=== PATIENT | female | born 2000 | race Caucasian/White ===

== ENCOUNTER → 2021-02-17 15:39 | Outpatient (CLI) | payer OTHER, SELFPAY ==
[2021-02-17 17:32] LABS: Absolute Lymphocyte Count 1.39 X10^3/uL (0.83-4.51); Absolute Neutrophil Count 8.7 X10^3/uL (2.0-7.7); Basophil# 0.05 X10^3/uL; Basophil% 0.5 % (0-1); Eosinophil# 0.04 X10^3/uL; Eosinophils% 0.4 % (0-5); Hematocrit 32.1 % (37-47); Hemoglobin 11.3 g/dL (12.0-15.0); Lymphocyte # 1.39 X10^3/ul (0.83-4.51); Mean Corp Hgb Conc 35.2 g/dL (32-36); Mean Corpuscular Hgb 31.6 pg (27.0-32.0); Mean Corpuscular Volume 89.7 fL (81-99); Mean Platelet Vol. 8.4 fl (6.2-12.0); Monocyte# 0.47 X10^3/uL; Monocyte% 4.4 % (0-10); NRBC Flagged by Analyzer 0 % (0-5); Neutrophil # 8.68 X10^3/uL (2.7-7.7); Neutrophil % 81.1 % (47-70); Platelet Count 352 K/mm3 (150-450); RBC Distribution Width CV 11.9 % (11.6-14.6); RBC Distribution Width SD 38.5 fl (35.1-43.9); Red Blood Count 3.58 M/mm3 (4.2-5.4); White Blood Count 10.7 K/mm3 (4.4-11.0)
[2021-02-18 10:02] LABS: HIV - WCH Non-Reactive (Nonreactive); Hepatitis B Surface Antigen Non-Reactive (Nonreactive); Hepatitis C Antibody Non-Reactive (Nonreactive); Rubella IgG Reactive (Nonreactive); Syphilis Antibodies Non-reactive
[2021-02-20 03:07] LABS: Chlamydia By Nucleic Acid AMP Negative (Negative)
[2021-02-20 12:41] LABS: Gonococcus By Nucleic Acid AMP Negative (Negative)
== END ==
PROVIDERS: Visit Provider Student in an Organized Health Care Education/Training Program
DX: Z34.81 Encounter for supervision of other normal pregnancy, first trimester (principal); Z11.3 Encounter for screening for infections with a predominantly sexual mode of transmission
CPT/HCPCS: 36415; 85025; 86703; 86762; 86780; 86803; 87086; 87088; 87186; 87340; 87491; 87591

== ENCOUNTER → 2021-03-24 | Outpatient (CLI) | payer OTHER, SELFPAY | END | disposition home or self-care (01) | LOC: LABSPEC 11:02 | PROVIDERS: Visit Provider Obstetrics & Gynecology | DX: O26.892 Other specified pregnancy related conditions, second trimester (principal); M54.9 Dorsalgia, unspecified; Z3A.00 Weeks of gestation of pregnancy not specified | CPT/HCPCS: 87077; 87086; 87088 ==

== ENCOUNTER 2021-09-21 17:20 | Inpatient (IN) | payer OTHER, SELFPAY ==
[2021-09-21] VITALS (16 sets, daily range): BP systolic 112–145; BP diastolic 56–70; PULSE 72–103; TEMP 36.4–37.3; O2SAT 97–100; BMI 22.6
--- NOTE | 2021-09-21 | PLAC_PTH ---
PATIENT: BISI SILVER LOC: WP U#:[id number] AGE/SX: 20/F ROOM: [facility] RE09/21/[address]: Dayanara Wolf CNM : 2000 BED: 1 DIS: 09/23/2021 SPEC #: [id number] RECD: 09/21/21 21:28 STATUS: SHOSHANA RUPERT #: [id number] PAPITO: 09/21/21 00:[address]: Dayanara Wolf DEPT: SURGICAL PATHOLOGY RECD BY: Yuriy Dent Tissues: Placenta, NOS Procedures: Surgery Specimen Level V HEADER OPERATION: Vaginal delivery PRE-OP DIAGNOSIS: Abnormal placenta TISSUE SUBMITTED: Placenta MICROSCOPIC DIAGNOSIS Chapin placenta (355 gm): Umbilical cord ? trivascular with no evidence of inflammation. Placental membranes ? mild acute chorioamnionitis and acute deciduitis. Placental disc ? Lisette-Keith change and mild intervillous congestion. AM:santo 09/24/2021 MICROSCOPIC DESCRIPTION Slides are reviewed. GROSS DESCRIPTION SPECIMEN: PLACENTA / CLINICAL INFORMATION: A. Weight: 2.81 kg B. Gestational Age: 39 weeks C. Sex: Male PLACENTAL WEIGHT (POST FIXATION): 355 gm PLACENTAL DIMENSIONS: 15 x 15 x 3 cm PLACENTAL SHAPE: Usual ovoid PLACENTAL WEIGHT FOR GESTATIONAL AGE: Within 10-99th percentile MEMBRANES - Present A. Insertion: Marginal B. Site of rupture from edge: 6 cm from edge of placental disc C. Color of membrane: Mauro-diehl D. Abnormalities: None UMBILICAL CORD - Present A. Color: Mauro-diehl B. Insertion: Eccentric C. Length: 23 cm D. Diameter: 1 cm E. Number of vessels: Three F. Abnormalities: None PLACENTAL DISC - Present A. Color of surface: Mauro-diehl B. surface abnormalities: None C. Maternal cotyledons: Intact with minimal tears D. Attached retro placental clot: No clot E. Cut surface: Dark red and spongy F. Lesions: None G. Separate clot: Absent SECTIONS SUBMITTED: 1. Umbilical cord ( end notched) 2. Umbilical cord, placental end 3. Membrane roll 4. Placental disc, and maternal surfaces 5. Placental disc, and maternal surfaces 6. Placental disc, and maternal surfaces AM:rg 09/23/21 TC:2 CPT: 35119
--- NOTE | 2021-09-21 17:24 | PCM.HP.OB ---
HPI - General HPI Narrative BISI SILVER, is a 20 F who presents at 39 weeks in active labor PFSH PFSH Home Medications aspirin [Aspir-81] 81 mg PO DAILY 09/21/21 [History Last Taken Unknown] [id number] [] 1 tab PO DAILY 09/21/21 [History Last Taken 09/19/21] Allergy/AdvReac Type Severity Reaction Status Date / Time No Known Allergies Allergy Verified 09/21/21 16:56 Social History Smoking Status: Never smoker History Elective abortions Hx Para 0 Spontaneous abortions Hx # Term Pregnancies Ectopic pregnancies Hx # Pregnancies Multiple births # of living children NST FHR Rate Baby A Baseline: 145 Variability:: Moderate Accelerations:: 15 x 15 Decelerations:: None FHR Category:: Category I Uterine Activity:: every 3 minutes, strong ROS Constitutional Constitutional: Reports systems reviewed and no addt'l complaints, except as documented; Denies headache(s) Eyes Eyes: Denies acute decrease in peripheral vision, blurry vision or change in vision ENT HEENT: Reports systems reviewed and no addt'l complaints, except as documented Cardiovascular Cardiovascular: Denies chest pain or dizziness Respiratory/Chest Respiratory/Chest: Denies cough, dyspnea, dyspnea on exertion, shortness of breath at rest or shortness of breath with exertion Gastrointestinal Gastrointestinal: Denies abdominal pain, diarrhea, nausea or vomiting Genitourinary Genitourinary: Denies abdominal discomfort or movement Musculoskeletal Musculoskeletal: Denies limited range of motion Integumentary Integumentary: Reports systems reviewed and no addt'l complaints, except as documented Neurologic Neurologic: Reports systems reviewed and no addt'l complaints, except as documented Psychiatric Psychiatric: Reports systems reviewed and no addt'l complaints, except as documented Endocrine Endocrinology: Reports systems reviewed and no addt'l complaints, except as documented Hematologic/Lymphatic Hematologic/Lymphatic: Reports systems reviewed and no addt'l complaints, except as documented Allergic/Immunologic Allergic/Immunologic: Reports systems reviewed and no addt'l complaints, except as documented Vital Signs Vital Signs Vital Signs: 09/21/21 16:30 Pulse Rate 75 Blood Pressure 131/70 H BP Systolic 131 BP Diastolic 70 Weight Weight: 131 lb 9.855 oz Body Mass Index (BMI) 22.6 Physical Exam Const alert and oriented x3 General Appearance: cooperative Orientation / Consciousness: awake, oriented to person, oriented to place and oriented to time Exam Limitations: no limitations HEENT normocephalic Head and Scalp: normal to inspection, normocephalic and atraumatic Face and Sinus: normal facial exam Eyes General Eye: normal appearance of both eyes Neck full ROM Chest Chest: symmetrical chest wall rise Resp normal respiratory effort and normal air movement Auscultation: clear to auscultation bilaterally Cardio regular rate, regular rhythm, S1 normal heart sound, S2 normal heart sound, no murmurs, no rub, no gallops and no clicks GI normal to inspection, nondistended, normoactive bowel sounds and non-tender appearance of the vagina normal Bladder / Kidney Exam: no CVA tenderness Manual OB Exam: presentation cephalic, dilated 6cm, effaced 90, station 0 and other bulging bag of water Back/Spine normal ROM Extremity normal to inspection and full ROM Skin no rashes or lesions noted Neuro oriented x3, CN's II-XII intact bilaterally and moves all extremities Sensorium / Orientation: awake, alert and oriented to person Motor Exam: clonus absent Deep Tendon Reflexes: Rt Patellar (L4): 2+ and Lt Patellar (L4): 2+ Labs Labs Labs: Blood Type B NEGATIVE Hct 32.1 % (37-47) L Hgb 11.3 g/dL (12.0-15.0) L Syphilis Total Ab Non-reactive Rubella IgG Antibody Reactive (Nonreactive) Hep Bs Antigen Non-Reactive (Nonreactive) Neisseria gonorrhoeae DNA (ROSSY) Negative (Negative) HIV 1&2 Antibody Non-Reactive (Nonreactive) GBS positive Assessment & Plan (1) 39 weeks gestation of : (2) Active labor: (3) Positive GBS test: (4) Rh negative state in antepartum period: (5) History of seizure: (6) Anemia affecting : PLAN: 1. Admit to labor and delivery 2. IV and routine labs 3. Epidural for pain management 4. GBS positive, routine prophylaxis with penicillin 5. Continuous EFM 6. Dr. Costello notified of patient status and admission
[2021-09-21] MEDS: Lactated Ringers 1,000 ML 200 ML IV (17:30)
[2021-09-21] MEDS: Lactated Ringers 500 ML 999 ML IV (17:40)
[2021-09-21 17:51] LABS: Absolute Lymphocyte Count 1.63 X10^3/uL (0.83-4.51); Absolute Neutrophil Count 15.4 X10^3/uL (2.0-7.7); Basophil# 0.05 X10^3/uL; Basophil% 0.3 % (0-1); Eosinophil# 0.01 X10^3/uL; Eosinophils% 0.1 % (0-5); Hematocrit 35.2 % (37-47); Hemoglobin 12.2 g/dL (12.0-15.0); Lymphocyte # 1.63 X10^3/ul (0.83-4.51); Lymphocyte % 9.1 % (19-41); Mean Corp Hgb Conc 34.7 g/dL (32-36); Mean Corpuscular Hgb 32.5 pg (27.0-32.0); Mean Corpuscular Volume 93.9 fL (81-99); Mean Platelet Vol. 8.5 fl (6.2-12.0); Monocyte# 0.68 X10^3/uL; Monocyte% 3.8 % (0-10); NRBC Flagged by Analyzer 0 % (0-5); Platelet Count 310 K/mm3 (150-450); RBC Distribution Width CV 12.6 % (11.6-14.6); Red Blood Count 3.75 M/mm3 (4.2-5.4); White Blood Count 17.9 K/mm3 (4.4-11.0)
[2021-09-21] MEDS: Oxytocin 30 units/NS 500 ml 30 UNITS/500 ML IV.SOLN 334 UNITS IV (18:54)
--- NOTE | 2021-09-21 19:05 | EX.PCM.OBRPT ---
Vaginal Delivery Maternal Presentation Maternal Presentation: Active Labor Operative Information Date of Procedure: 09/21/21 Pre-Operative Diagnosis: Active Labor Post-Operative Diagnosis: Surgery / Procedure Performed: Spontaneous Vaginal Delivery Type of Anesthesia: None Estimated Blood Loss: 150 ml Time of Delivery: 18:52 Findings Description of Procedure: Admitted in labor and progressed rapidly to complete dilation with strong urge to push. Precipitous of viable male infant over 1st degree perineal laceration. APGARS 9,9. Infant head delivered in PEGGY with body immediately forthcoming. Mouth and nares suctioned for secretions, spontaneous cry. Pitocin started for active 3rd stage management. Delayed cord clamping. Cord doubly clamped and cut by FOB. Placenta delivered intact via carlee, 3 vessel cord. Perineum inspected and revealed small first degree laceration repaired with 3.0 vicyl rapide figure 8 stitch with approximation. Vaginal sweep completed by me, sponge and instrument count correct. Fundus firm, EBL 150ml. Mom and baby stable, planning to breastfeed, family bonding well. notified of delivery. Presentation: PEGGY Amniotic Membrane Rupture Type: Artificial Amniotic Fluid Description: Clear Placental Delivery Description: Spontaneous Placenta Disposition: Sent to Pathology Cord Vessel Description: 3 Vessels Cord Entanglement: None A Gender: Male (1 minute): 9 (5 minute): 9 Delayed Cord Clamping: Yes Post Vaginal Delivery Medications Given After Delivery: IV Pitocin Episiotomy Description: None Laceration: 1st degree Complication Complications: None
[2021-09-21 21:36] LABS: Probe Check PASS; Specimen Processing Control PASS
[2021-09-21] MEDS: 0.9% Saline Lock 10 ML Syringe IV (21:40)
[2021-09-21 21:41] LABS: Pathology Specimen OB SEE PATHOLOGY REPORT
[2021-09-22 00:47] VITALS: BP 126/54; PULSE 74; RESP 16; TEMP 37.1; O2SAT 98
[2021-09-22 04:25] VITALS: BP 127/68; PULSE 81; RESP 18; TEMP 36.2; O2SAT 97
[2021-09-22 07:47] VITALS: BP 128/75; PULSE 68; RESP 16; TEMP 36.8; O2SAT 98
--- NOTE | 2021-09-22 09:32 | NURSING ---
Report given to Reno Zayas RN, who will assume care of this patient at this time.
[2021-09-22 12:40] VITALS: BP 124/60; PULSE 78; RESP 16; TEMP 36.7; O2SAT 97
--- NOTE | 2021-09-22 15:40 | PCM.PN.OB ---
Subjective Subjective Denies complaints Objective Data Objective Data Vital Signs: Vital Signs Temp Pulse Resp BP Pulse Ox 98.0 F 78 16 124/60 H 97 09/22/21 12:40 09/22/21 12:40 09/22/21 12:40 09/22/21 12:40 09/22/21 12:40 Oxygen Delivery Method Room Air Weight: 131 lb 9.855 oz Body Mass Index (BMI) 22.6 Intake & Output: Intake and Output for Last 24 Hours 09/20/21 09/21/21 09/22/21 23:59 23:59 23:59 Intake Total 904.73 / 904.73 Output Total 200 / 200 700 / 700 Balance 704.73 / 704.73 -700 / -700 Lab / Micro Data Result Diagrams: 09/21/21 17:30 Labs: Laboratory Results - last 24 hr 09/21/21 17:30: WBC 17.9 H, RBC 3.75 L, Hgb 12.2, Hct 35.2 L, MCV 93.9, MCH 32.5 H, MCHC 34.7, RDW Std Deviation 43.0, RDW Coeff of Zheng 12.6, Plt Count 310, MPV 8.5, Immature Gran % (Auto) 0.700, Neut % (Auto) 86.0 H, Lymph % (Auto) 9.1 L, [place] % (Auto) 3.8, Eos % (Auto) 0.1, Baso % (Auto) 0.3, Absolute Neuts (auto) 15.4 H, Absolute Lymphs (auto) 1.63, Nucleated RBC % 0 09/21/21 17:30: Blood Type B NEGATIVE, Antibody Screen TNP 09/21/21 17:30: COVID-19 (ROSSY) Negative 09/21/21 17:30: Antibody Screen NEGATIVE 09/21/21 20:35: Screen NEGATIVE, Baby's Blood Type O POSITIVE, Baby's JUDY NEGATIVE Physical Exam Const alert, oriented x3 and no apparent distress HEENT normocephalic GI soft to palpation, non-tender and non-distended GI Narrative: fundus firm, mid & below umbilicus Extremity normal to inspection and no calf tenderness Assessment & Plan (1) 39 weeks gestation of : COMMENT: PPD#1 PLAN: Routine care
[2021-09-22 16:53] VITALS: BP 125/71; PULSE 80; RESP 16; TEMP 36.5; O2SAT 98
[2021-09-22 20:30] VITALS: BP 115/68; PULSE 82; RESP 16; TEMP 36.9; O2SAT 95
[2021-09-23 02:35] VITALS: BP 112/67; PULSE 78; RESP 16; TEMP 36.6; O2SAT 97
[2021-09-23 07:40] VITALS: BP 121/54; PULSE 68; RESP 16; TEMP 36.4; O2SAT 99
--- NOTE | 2021-09-23 08:01 | PCM.PN.OB ---
Subjective Subjective Patient seen at bedside, doing well. Patient reports good pain control. Mild lochia. Voiding without difficulty. Breast-feeding. Patient ready for DC home today. Objective Data Objective Data Vital Signs: Vital Signs Temp Pulse Resp BP Pulse Ox 97.6 F L 68 16 121/54 H 99 09/23/21 07:40 09/23/21 07:40 09/23/21 07:40 09/23/21 07:40 09/23/21 07:40 Oxygen Delivery Method Room Air Weight: 59.7 kg Body Mass Index (BMI) 22.6 Intake & Output: Intake and Output for Last 24 Hours 09/21/21 09/22/21 09/23/21 23:59 23:59 23:59 Intake Total 904.73 / 904.73 Output Total 200 / 200 700 / 700 Balance 704.73 / 704.73 -700 / -700 Lab / Micro Data Result Diagrams: 09/21/21 17:30 Physical Exam Const alert and oriented x3 General Appearance: cooperative HEENT normocephalic Neck General: normal visual inspection GI soft to palpation and non-distended GI Narrative: Fundus firm Extremity normal to inspection and no calf tenderness Skin no rashes or lesions noted Neuro oriented x3 and CN's II-XII intact bilaterally Psych mental status grossly normal Assessment & Plan (1) Vaginal delivery: PLAN: PPD#2 , Doing well Routine care pain mgmt ambulation dc home
--- NOTE | 2021-09-23 08:02 | PCM.DC ---
Discharge Instructions Diet Discharge Diet: No restrictions Activity May resume sexual activity in: 6-8 weeks Dressing / Incision Call your doctor if you observe: Fever of 101 or Higher, Inability to urinate, Using more than 1 pad per hour and Uncontrolled pain Follow Up Care Please Follow Up With: Eri Barth MD When: 1-2 weeks post and again at 6 weeks post . [phone] Test Results: Test results from this visit will be discussed in further detail at your follow-up appointment, if applicable. Discharge Plan Admission Admit Date/Time: 09/21/21 17:20 Attending Provider: Dayanara Wolf Discharge Orders/Prescriptions Prescriptions: New acetaminophen 500 mg Tablet 500 - 1,000 mg PO Q6H PRN PRN (Reason: Pain Score 1-3) Qty: 0 RF: 0 ibuprofen 600 mg Tablet 600 mg PO Q6H PRN PRN (Reason: Pain Score 1-3) Qty: 0 RF: 0 Continued [id number] 1 mg Tablet 1 tab PO DAILY RF: 0 Discontinued aspirin [Aspir-81] 81 mg Tablet,Delayed Release (Dr/Ec) 81 mg PO DAILY RF: 0 Disposition Disposition (needs filled in before D/C Order can be placed): Home, Self Care
== END 2021-09-23 10:05 | disposition home or self-care (01) | DRG 807 ==
LOC: WPOUT 17:25 → WP 17:25
PROVIDERS: Admitting Provider Advanced Practice Midwife; Visit Provider Advanced Practice Midwife
DX: O99.824 Streptococcus B carrier state complicating childbirth (principal); Z37.0 Single live birth; O62.3 Precipitate labor; O70.0 First degree perineal laceration during delivery; O99.02 Anemia complicating childbirth; D64.9 Anemia, unspecified; Z3A.39 39 weeks gestation of pregnancy
CPT/HCPCS: 59025; 59050; 85025; 85461; 86850; 86900; 86901; 87635; 88307; 90384; 99218; J7120; U0005; A4216; G0378; J2790; U0003

== ENCOUNTER → 2023-02-07 | Outpatient (CLI) | payer OTHER, MEDICAID, SELFPAY ==
--- NOTE | 2023-02-07 12:22 | US_ITS ---
STUDY: RENAL ULTRASOUND - COMPLETE REASON FOR EXAM: Female, 22 years old. UTI -- HX KIDNEY INFECTIONS TECHNIQUE: Ultrasound evaluation of the kidneys was performed with real-time and static patel-scale imaging. COMPARISON: None. FINDINGS: RIGHT KIDNEY: Normal location of the right kidney, which is normal in size. The right kidney measures 10.6 cm x 4.5 cm x 3.5 cm. There is a normal cortex of the right kidney. The renal cortex measures 1.1 cm. There is no right renal mass or cyst. There are no right renal calculi. There is no right hydronephrosis. DISTAL RIGHT URETER: There is non-visualization of the distal right ureter. There is no demonstrated right ureterovesical junction calculus. There is a visualized right ureteral jet. LEFT KIDNEY: Normal location of the left kidney, which is normal in size. The left kidney measures 10.5 cm x 3.5 cm x 5.2 cm. There is a normal cortex of the left kidney. The renal cortex measures 1.5 cm. There is no left renal mass or cyst. There are no left renal calculi. There is no left hydronephrosis. DISTAL LEFT URETER: There is non-visualization of the distal left ureter. There is no demonstrated left ureterovesical junction calculus. There is a visualized left ureteral jet. BLADDER: The distended urinary bladder has a volume of 180 ml. US/Kidney and Bladder IMPRESSION: Normal ultrasound of the kidneys and urinary bladder. Electronically Signed: [place] Nick MD at 13:31 EDT ,
== END | disposition home or self-care (01) ==
LOC: US 12:20
PROVIDERS: Referring Provider Urology; Visit Provider Urology
DX: N39.0 Urinary tract infection, site not specified (principal)
CPT/HCPCS: 76770